=== PATIENT | female | born 1985 | race Caucasian/White ===

== ENCOUNTER → 2016-12-11 | Outpatient (CLI) | payer MEDICARE, OTHER ==
--- NOTE | 2016-12-12 06:45 | XR ---
EXAMINATION TYPE: XR abdomen 2V DATE OF EXAM: 12/11/2016 11:10 AM CLINICAL HISTORY: Chronic recurrent constipation. TECHNIQUE: Supine and upright views of the abdomen are obtained. COMPARISON: Abdominal x-ray series February 10, 2015. FINDINGS: Scattered gas is seen in non-distended stomach and small bowel loops. Gas and fecal mater ial is seen in non-distended colon. The amount of fecal burden is not significantly prominent. No ambrosio picious air-fluid levels are seen. There is no visceromegaly, pneumoperitoneum, or abnormal calcific ation appreciated. The lung bases are clear and the osseous structures are intact. IMPRESSION: Overall nonobstructive bowel gas pattern.
== END | disposition home or self-care (01) ==
LOC: RADXRYALE 10:58
PROVIDERS: ATTEND Physician Assistant Medical
DX: K59.00 Constipation, unspecified (principal)
CPT/HCPCS: 74020

== ENCOUNTER → 2018-02-04 | Outpatient (CLI) | payer MEDICARE, OTHER ==
--- NOTE | 2018-02-04 13:38 | US ---
EXAMINATION TYPE: US pelvic complete DATE OF EXAM: 02/04/2018 COMPARISON: NONE CLINICAL HISTORY: 32-year-old female [id number] Irregular menstruation. TECHNIQUE: Transabdominal sonographic images of the pelvis were acquired. Date of LMP: 01/20/18 Findings: Uterus: Anteverted measuring 7.1 x 2.3 x 4.1 cm Endometrial Stripe: 0.6 cm, within normal limits. Right Ovary: 5.3 x 3.1 x 3.1 cm for a volume of 27.2 mL, mildly enlarged secondary to a 3.6 cm domin ant follicle or functional cyst. There also appears to be a smaller 2.0 cm paraovarian cyst. Left Ovary: 4.2 x 3.3 x 3.1 cm for a volume of 22.1 mL. This is mildly enlarged secondary to a 3.0 c m cystic structure with internal reticular densities and posterior through transmission. No evident adnexal abnormality or cul-de-sac free fluid. IMPRESSION: 1. A 3.0 cm complex lesion in the left ovary, suspected hemorrhagic cyst. Follow-up in 6-8 weeks to e nsure resolution. 2. A 3.6 cm dominant follicle or functional cyst in the right ovary as well as a 2.0 cm paraovarian c yst. These can also be reassessed at the follow-up. 3. 6 mm thick endometrial stripe.
== END | disposition home or self-care (01) ==
LOC: RADUSWWP 12:05
PROVIDERS: ATTEND Family Medicine
DX: N83.291 Other ovarian cyst, right side (principal); N92.6 Irregular menstruation, unspecified; R93.8 Abnormal findings on diagnostic imaging of other specified body structures
CPT/HCPCS: 76856

== ENCOUNTER → 2018-08-19 | Outpatient (CLI) | payer MEDICARE, OTHER ==
--- NOTE | 2018-08-20 14:40 | MR ---
EXAMINATION TYPE: MR shoulder LT wo con DATE OF EXAM: 08/19/2018 COMPARISON: None HISTORY: 33-year-old female Left shoulder pain TECHNIQUE: Multiplanar, multisequence imaging of the left shoulder is performed without contrast. FINDINGS: There is small amount of intrinsic signal within the intracapsular portion of the long biceps tendon. The extracapsular portion remains appropriately situated along the bicipital groove. There is some thickening of the coracohumeral ligament measuring up to 4.7 mm. Subscapularis tendon is intact. AC joint is intact. Both hemispheres and infraspinatus tendons are intact. However, there is subtle edema seen within the supraspinatus and infraspinatus muscle bellies when ut ilizing tight windowing on the sagittal T2 FSE sequence. No muscular atrophy. There is a truncated anterior superior glenoid labrum with adjacent thickened structure which courses vertically along the anterior aspect of the glenoid. No tear identified of the superior labrum and no para labral cyst. There is a cystic-appearing structure measuring 1 cm which perforates through the base of the coracoi d and which shows tapering and continuity with vessels on either side, suggesting a small varix. Otherwise, glenohumeral joint is intact. The spinoglenoid groove and suprascapular notch are clear. N o joint effusion. No Hill-Sachs deformity or os acromiale. Patchy red marrow is present compatible with patient's relatively young age. IMPRESSION: 1. Absent anterior superior glenoid labrum with a thickened cordlike structure located just anteriorl y to the glenoid. Clinical correlation recommended with patient's symptoms as both a focally detached labrum and Brianna complex are in the differential. The latter is somewhat favored. 2. Thickening of the coracohumeral ligament suggests sprain of the biceps ted. There is some incre ased signal within the substance of the intracapsular long head biceps tendon suggesting tendinosis o r small interstitial tear. 3. Subtle edema within both supraspinatus and infraspinatus muscle bellies could represent a mild mus yaa strain or edema reactive to altered biomechanics. The degree of edema is less than would be expec valerie in [place]-Reed syndrome. 4. No rotator cuff tear.
== END | disposition home or self-care (01) ==
LOC: RADMRIMAIN 07:18
PROVIDERS: ATTEND Physician Assistant Medical
DX: M24.212 Disorder of ligament, left shoulder (principal); R93.7 Abnormal findings on diagnostic imaging of other parts of musculoskeletal system; R53.1 Weakness; M25.512 Pain in left shoulder